=== PATIENT | male | born 2000 | race Caucasian/White ===

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

== ENCOUNTER 2020-06-27 17:17 | Emergency (ER) | payer BC ==
[~2020-06-27] VITALS: Ht 188 cm; Wt 93.2 kg
[~2020-06-27 17:17] MED LIST: CRUTCHES MC
[2020-06-27 17:30] VITALS: BP 113/57; TEMP 98.7
[2020-06-27] MEDS ORDERED: CEPHALEXIN500 M1 PO (18:36)
[2020-06-27 18:52] VITALS: PULSE 80
== END 2020-06-27 18:52 | disposition home or self-care (01) ==
LOC: COL.ER 17:17
DX: S91.342A Puncture wound with foreign body, left foot, initial encounter (principal); X50.0XXA Overexertion from strenuous movement or load, initial encounter; Y93.39 Activity, other involving climbing, rappelling and jumping off; Y92.828 Other wilderness area as the place of occurrence of the external cause